=== PATIENT | male | born 1950 | race Caucasian/White ===

== ENCOUNTER → 2018-08-29 09:04 | Outpatient (POV) | payer MEDICARE, SELFPAY | PROVIDERS: Visit Provider Dermatology | DX: Z00.00 Encounter for general adult medical examination without abnormal findings (principal) ==

== ENCOUNTER → 2019-02-23 11:55 | Outpatient (CLI) | payer MEDICARE, SELFPAY ==
--- NOTE | 2019-02-23 12:01 | XR_ITS ---
XR chest 2V HISTORY: ITS.REASON: CHEST WALL PAIN ORDERING PHYSICIAN: LISA Cabrera PATIENT AGE: 68 years Technique: PA and lateral chest COMPARISON: 02/05/2016 PA and lateral chest FINDINGS: A sternotomy with previous CABG. Heart upper normal in size. Small calcified hilar nodes stable. Mediastinum otherwise unremarkable We again see areas of linear scarring and atelectasis toward lung bases Left lung base appears stable with linear scarring towards the left CP angle again noted. Left upper lung nicholson clear. Unremarkable Right lung base appears similar as well with minimal similar linear scarring at the right lower lobe. This is similar to previous chest films from 2016 this area. Fairly clear on today's lateral T-spine film as well and I believe stable. No pneumothorax no pleural effusion. Elevation right hemidiaphragm is again noted. right hemidiaphragm only down to the anterior fourth rib on right. The chest wall appears intact no apparent rib fractures on this routine CXR. T-spine appears stable since prior 2016 CXR IMPRESSION. Nothing definitely acute. CABG. Sternotomy. Mild linear scarring towards lower lobes bilaterally again noted. Stable Elevation right hemidiaphragm
--- NOTE | 2019-02-23 12:01 | XR_ITS ---
r XR elbow RT min 3V Ordering Physician: LISA Carbera Patient Age: 68 years: Male HISTORY: ITS.REASON: RT ELBOW PAIN injury fall 2 days ago TECHNIQUE: 3 views right elbow COMPARISON :None relevant FINDINGS No discrete acute fracture at the right elbow.. Anterior & posterior fat pad satisfactory. The patient does have prominent hypertrophic changes and degenerative changes at the elbow. Posterior there is a large 19 mm length thick spur from the posterior margin of the olecranon. It appears intact. Question possibly some mild swelling at the olecranon bursa just above this. Fragmented spur at base of the capitellum & lateral condyle condyle can reflect a old lateral epicondylitis . It has a corticated margin reflecting its old lung changes character. There is also spurring from the margin of the radial head At the medial aspect of joint is a small dens, comma shaped osseous fragment 4 mm length. It appears to be most likely an old feature related to degenerative process. The lateral view also shows hypertrophic changes of coronoid process and anterior margin of the joint. IMPRESSION.... 1. No good evidence of acute fracture at the elbow. No joint effusion 2. Hypertrophic changes are seen about the elbow and detailed in text Hypertrophic changes about the margins elbow joint, as well as insertion points. For example Prominent thick olecranon spur nearly 2 cm length. If pain persist consider follow-up
--- NOTE | 2019-02-23 12:01 | XR_ITS ---
XR thoracic spine 3V Ordering Physician: LISA Cabrera Patient Age: 68 years: Male HISTORY: ITS.REASON: THORACIC PAIN fall 2 days ago. Thoracic and pain TECHNIQUE: AP lateral and swimmer's view thoracic spine COMPARISON 02/05/2016 2 view chest :2 view chest film 02/23/2019 FINDINGS The thoracic vertebral bodies appear intact with no evident compression fracture or significant new findings. Prominent anterior marginal osteophytes are seen at the lower T-spine and less pronounced at the mid thoracic spine reflecting this patient's tendency to hypertrophic bone changes.. The AP view of the T-spine also appears to be a similar to 2016. CABG sternotomy noted. Diffusion procedure involving the lumbar spine is been previously discussed in begins at L1. IMPRESSION: No acute findings Thoracic spine appears stable no significant change since 2016 Generous anterior marginal osteophytes throughout the mid & lower T-spine again noted
--- NOTE | 2019-02-23 12:01 | XR_ITS ---
XR lumbar spine min 4V Ordering Physician: LISA Cabrera Patient Age: 68 years: Male HISTORY: ITS.REASON: LOW BACK PAINfall 2 days ago TECHNIQUE: Five-view lumbar spine series COMPARISON : 08/03/2013 flexion and extension lateral 2 view lumbar spine July 2009 AP lateral view lumbar spine series MRI lumbar spine July 2013 Findings A no acute fracture nor subluxation. No significant new findings versus 2008 extensive posterior fusion and laminectomy, again observed Bilateral Pedicle screws at L1, L2, L3, L4 and L5 with posterior metallic rods from L2 through L5. A laminectomy extending from at least L2- through L4/5. These features appear stable and I see no acute fracture nor new/ significant subluxation... Again we see the slight 4 to 5 mm retrolisthesis of L1 on L2 but this is unchanged since 2012 . Sacralization L5 the left more so than right again noted Prominent Anterior marginal osteophytes most notable at the lower thoracic spine and thoracolumbar junction IMPRESSION: ...... No acute fracture nor subluxation lumbar spine. Extensive posterior fusion and laminectomy again observed with no significant appearing changes since 2008. Slight retrolisthesis L1 on L2 appears stable since 2008.
== END ==
PROVIDERS: PCP Physician Assistant; Visit Provider Physician Assistant
DX: R07.89 Other chest pain (principal); M54.6 Pain in thoracic spine; M54.5 Low back pain; M25.521 Pain in right elbow
CPT/HCPCS: 71046; 72072; 72110; 73080

== ENCOUNTER → 2019-07-05 08:55 | Outpatient (CLI) | payer MEDICARE, SELFPAY ==
[2019-07-05 12:07] LABS: Alanine Aminotransferase 26 U/L (12-78); Albumin Level 3.8 gm/dL (3.4-5.0); Albumin/Globulin Ratio 1.3 (1.1-1.8); Alkaline Phosphatase 46 U/L (46-116); Anion Gap 16.3 mEq/L (5-15); Aspartate Amino Transferase 14 U/L (15-37); Bilirubin,Total 0.8 mg/dL (0.2-1.0); Blood Urea Nitrogen 14 mg/dL (7-18); Calcium 9.3 mg/dL (8.5-10.1); Carbon Dioxide 25 mmol/L (21.0-32.0); Chloride 103 mmol/L (98-107); Chol/HDL Ratio 3.7 (1-3.5); Cholesterol 137 mg/dL (140-200); Creatinine,Serum 0.77 mg/dL (0.70-1.30); Estimated Glomerular Filt Rate 100 ml/min (>60); GFR (African American) 121 ML/MIN (>60); Globulin 2.9 gm/dl (1.3-3.2); Glucose 123 mg/dL (74-106); HDL Cholesterol 37 mg/dL (27-67); LDL Cholesterol 54 mg/dL (0-130); Potassium 4.3 mmoL/L (3.5-5.1); Sodium 140 mmol/L (136-145); Total Protein,Serum 6.7 gm/dL (6.4-8.2); Triglycerides 232 mg/dL (30-200); VLDL Cholesterol 46 mg/dL (0-40)
[2019-07-05 14:29] LABS: Hemoglobin A1C 6.7 % (0.0-7.0)
== END ==
PROVIDERS: Visit Provider Family Medicine
DX: E11.9 Type 2 diabetes mellitus without complications (principal); E78.5 Hyperlipidemia, unspecified
CPT/HCPCS: 36415; 80053; 80061; 83036

== ENCOUNTER → 2019-08-22 09:59 | Outpatient (CLI) | payer MEDICARE, SELFPAY ==
--- NOTE | 2019-08-22 10:09 | MR_ITS ---
PROCEDURE: MR CERVICAL SPINE WO CON CLINICAL INDICATION: PARESTHESIA AND PAIN LEFT AND RIGHT EXTREMITY Neck pain, upper extremity pain and paresthesias with numbness and tingling down left, headache, grinding and neck COMPARISON: No exams were available for comparison TECHNIQUE: Standard multiplanar multiecho sequences are performed without contrast. 3-D MIP and myelographic images are also rendered and reviewed FINDINGS: There is normal alignment. The cranial cervical junction has an unremarkable appearance. C2-C3: Small annular fissure is present in the posterior aspect of the disc without significant bulge or protrusion. There narrowing of the canal at 10 mm. C3-C4: Bulging disc with a small central disc protrusion with minimal flattening of the cord anteriorly with canal stenosis at 9 mm. C4-C5: Bulging disc with small broad based central disc protrusion very slightly eccentric toward the left with canal stenosis at 9 mm and minimal flattening of the cord anteriorly with mild left lateral recess and foraminal narrowing. There is some minimal inferior extrusion of the disc at this level in the left paracentral region. C5-C6: Bulging disc with a small broad-based central disc protrusion with canal stenosis at 8 mm with mild impingement upon the anterior aspect of the cord with cord flattening. There is mild bilateral foraminal narrowing from uncovertebral hypertrophy. C6-C7: Degenerate disc disease with bulging disc and small broad-based central disc protrusion slightly eccentric to the left causing mild flattening upon the anterior left aspect of the cord with narrowing of the canal at 9.5 mm. Mild left-sided foraminal narrowing. C7-T1: Unremarkable. T1-T2: Degenerative disc disease. IMPRESSION: 1. C2-C3: Small annular fissure is present in the posterior aspect of the disc without significant bulge or protrusion. There narrowing of the canal at 10 mm. 2. C3-C4: Bulging disc with a small central disc protrusion with minimal flattening of the cord anteriorly with canal stenosis at 9 mm. 3. C4-C5: Bulging disc with small broad based central disc protrusion very slightly eccentric toward the left with canal stenosis at 9 mm and minimal flattening of the cord anteriorly with mild left lateral recess and foraminal narrowing. There is some minimal inferior extrusion of the disc at this level in the left paracentral region. 4. C5-C6: Bulging disc with a small broad-based central disc protrusion with canal stenosis at 8 mm with mild impingement upon the anterior aspect of the cord with cord flattening. There is mild bilateral foraminal narrowing from uncovertebral hypertrophy. 5. C6-C7: Degenerate disc disease with bulging disc and small broad-based central disc protrusion slightly eccentric to the left causing mild flattening upon the anterior left aspect of the cord with narrowing of the canal at 9.5 mm. Mild left-sided foraminal narrowing Dictated by: Giuseppe Galdamez MD 08/23/2019 12:11 Electronically signed by Giuseppe Galdamez MD in [facility] 08/23/2019 12:11
== END ==
PROVIDERS: PCP Family Medicine; Visit Provider Nurse Practitioner Family
DX: M79.601 Pain in right arm (principal); M54.2 Cervicalgia
CPT/HCPCS: 72141; 76376

== ENCOUNTER → 2019-09-04 07:53 | Outpatient (POV) | payer MEDICARE, SELFPAY | PROVIDERS: Visit Provider Dermatology | DX: Z00.00 Encounter for general adult medical examination without abnormal findings (principal) ==

== ENCOUNTER 2019-11-09 08:00 | Outpatient (RCR) | payer MEDICARE, SELFPAY | END 2019-11-09 08:05 | disposition home or self-care (01) | LOC: PT 08:00 | PROVIDERS: Visit Provider Neurological Surgery | DX: M54.2 Cervicalgia (principal) | CPT/HCPCS: 20560; 97010; 97012; 97014; 97033; 97035; 97110; 97140; 97163; G0283 ==

== ENCOUNTER → 2019-11-13 15:19 | Outpatient (CLI) | payer MEDICARE, SELFPAY ==
--- NOTE | 2019-11-13 15:35 | ECG_ITS ---
APPROVED REPORT Exam: Resting ECG HR:79 bpm ECG Measurements Heart Rate 79 AXES OR 180 P 35 QRSd 110 QRS -45 QT 402 T 84 QTc 460 <Conclusion> Normal sinus rhythm Left atrial abnormality, poor R-wave progression,left anterior fascicular block Abnormal ECG Electronically signed by : German De Jesus, 11/13/2019 20:06:14
== END ==
PROVIDERS: PCP Family Medicine; Visit Provider Nurse Practitioner Family
DX: Z01.810 Encounter for preprocedural cardiovascular examination (principal)
CPT/HCPCS: 93005

== ENCOUNTER → 2019-11-14 08:21 | Outpatient (CLI) | payer MEDICARE, SELFPAY ==
[2019-11-14 09:01] LABS: Basophils % 0.7 % (0.1-2.0); Eosinophils # 0.1 K/mm3 (0.0-0.4); Hematocrit 53.3 % (42.0-52.0); Hemoglobin 17.3 g/dL (14.1-18.0); Lymphocytes # 1.4 K/mm3 (0.7-4.5); Lymphocytes % 29.6 % (10-50); Mean Corpuscular HGB Conc 32.4 g/dL (31.8-35.4); Mean Corpuscular Hemoglobin 31.1 pg (27.0-31.2); Mean Corpuscular Volume 95.8 fl (80-94); Mean Platelet Volume 7.5 fl (7.4-10.4); Monocytes # 0.5 K/mm3 (0.1-1.0); Neutrophils # 2.7 K/mm3 (1.8-7.8); Neutrophils % 57.7 % (37.0-80.0); Platelet Count 171 K/mm3 (142-424); Red Blood Count 5.57 M/mm3 (4.60-6.20); White Blood Count 4.6 K/mm3 (4.8-10.8)
[2019-11-14 09:34] LABS: Hemoglobin A1C 6.6 % (0.0-7.0)
[2019-11-14 09:49] LABS: Alanine Aminotransferase 27 U/L (21-72); Albumin Level 3.7 g/dL (3.4-5.0); Albumin/Globulin Ratio 1.4 (1.1-1.8); Alkaline Phosphatase 47 U/L (46-116); Anion Gap 12.2 mEq/L (5-15); Aspartate Amino Transferase 15 U/L (15-37); Bilirubin,Total 0.6 mg/dL (0.2-1.0); Blood Urea Nitrogen 16 mg/dL (7-18); Calcium 9.3 mg/dL (8.5-10.1); Carbon Dioxide 30 mmol/L (21.0-32.0); Chloride 109 mmol/L (98-107); Creatinine,Serum 0.93 mg/dL (0.70-1.30); Estimated Glomerular Filt Rate 80 ml/min (>60); GFR (African American) 97 ML/MIN (>60); Globulin 2.7 gm/dl (1.3-3.2); Glucose 179 mg/dL (74-106); Potassium 4.2 mmoL/L (3.5-5.1); Sodium 147 mmol/L (137-145); Total Protein,Serum 6.4 g/dL (6.4-8.2)
== END ==
PROVIDERS: Visit Provider Nurse Practitioner Family
DX: Z01.818 Encounter for other preprocedural examination (principal); R73.9 Hyperglycemia, unspecified
CPT/HCPCS: 36415; 80053; 83036; 85025

== ENCOUNTER 2019-12-26 09:00 | Outpatient (RCR) | payer MEDICARE, SELFPAY | END 2019-12-26 09:05 | disposition home or self-care (01) | LOC: PT 09:00 | PROVIDERS: PCP Family Medicine | DX: M50.022 Cervical disc disorder at C5-C6 level with myelopathy (principal) | CPT/HCPCS: 97010; 97014; 97110; 97140; 97163; 97760; G0283 ==

== ENCOUNTER → 2020-03-07 08:28 | Outpatient (CLI) | payer MEDICARE, SELFPAY ==
--- NOTE | 2020-03-07 08:31 | US_ITS ---
PROCEDURE: US ABD. AORTA SCREENING CLINICAL INDICATION: AAA , Former smoker COMPARISON: No exams were available for comparison FINDINGS: The aorta is visualized from the level of the xiphoid sternum to the bifurcation. The aorta is normal in caliber throughout showing mild diffuse arthrosclerotic plaquing. The origins of the common iliac arteries are normal in caliber. IMPRESSION: Negative for aortic aneurysm Dictated by: Dr. Jonathan Mathews MD 03/07/2020 11:[address] Jonathan Mathews MD in [facility] 03/07/2020 11:50
== END ==
PROVIDERS: PCP Family Medicine; Visit Provider Nurse Practitioner Family
DX: Z13.6 Encounter for screening for cardiovascular disorders (principal)
CPT/HCPCS: 76705

== ENCOUNTER 2020-03-29 13:05 | Emergency (ER) | payer MEDICARE, SELFPAY ==
[2020-03-29 13:05] VITALS: BP 130/80; PULSE 76; RESP 18; TEMP 36.8; O2SAT 95
[2020-03-29 13:06] VITALS: BMI 31.1
--- NOTE | 2020-03-29 13:06 | ECG_ITS ---
APPROVED REPORT Exam: Resting ECG HR:74 bpm ECG Measurements Heart Rate 74 AXES OK 176 P 37 QRSd 92 QRS -45 QT 390 T 78 QTc 432 <Conclusion> Normal sinus rhythm Possible Left atrial enlargement Low voltage QRS Left anterior fascicular block Cannot rule out Old Inferior infarct (masked by fascicular block?) Old Lateral MT Abnormal ECG Electronically signed by : Maninder Rubio, 03/30/2020 19:32:20
--- NOTE | 2020-03-29 13:07 | PC.NURSE ---
trauma alert cancelled
--- NOTE | 2020-03-29 13:18 | CT_ITS ---
PROCEDURE: CT CHEST W CON Patient Age:69Y CLINICAL HISTORY: trauma alert multiple injuries pulled off tractor . Pain at left shoulder left upper ribs. left chest pain Mid back and lower back pain COMPARISON: No exams were available for comparison TECHNIQUE: IV contrast: 100 cc Optiray 350 bolus contrast administered No oral contrast utilized Helical axial images obtained with sagittal and coronal reformats. All CT scans at the facility use one or more dose reduction, viz: automated exposure control, ma/kV adjustment per patient size (including targeted exams where dose is matched to indication, i.e. head), or iterative reconstruction technique. FINDINGS: . Thyroid: Beginning superiorly at the thyroid there is a 2.5 cm AP times 2.1 cm height partially enhancing mass lower pole left lobe thyroid. Recommend thyroid ultrasound to further evaluate . Smaller 10 mm x 5 mm probable cyst seen towards the upper left lobe. . Left lobe thyroid enlarged compared to the right . Mediastinum and liam appear satisfactory. No significant adenopathy. No masses. Only modest size calcified mediastinal nodes of old granulomatous disease noted of most notable at base of right liam Aorta and great vessels appear satisfactory. Thoracic aorta intact with no aneurysm or dissection. Pulmonary artery appears satisfactory. No pulmonary emboli Heart. Borderline/mild cardiomegaly. left atrial appendage noted. CABG. Diffuse coronary artery calcifications sternotomy. No pericardial effusion. No acute findings by CT. A generous caliber IVC likely reflecting its capacitance Lungs: No active disease of significance Mild/moderate atelectasis adjacent to the prominent anterior marginal osteophytes of the spine. Otherwise only very minimal dependent atelectasis and scarring along the posterior aspect of the lower lobes.. Linear area of scarring and atelectasis most notable just above left hemidiaphragm and left posterior sulcus region. Unlikely any active infiltrate here. No pneumothorax. No pleural effusion. No acute pulmonary findings. . Bones but ribs but ribs appear intact no fractures identified. The multi level marginal osteophytes throughout the T-spine are again noted. Upper abdomen. . Gallstones noted at the upper abdomen but this will be discussed on the CT abdomen report IMPRESSION: No acute findings chest. No rib fractures identified Aorta and great vessels appear intact with no aneurysm nor dissection.. No pulmonary embolism No active pulmonary disease. No pneumothorax or effusion . Only minimal atelectasis and scarring most evident towards the left posterior sulcus/left lung base, . Also scarring adjacent to the prominent marginal osteophytes from thoracic spine Partially enhancing mass lower left lobe thyroid measures 2.5 cm. But recommend thyroid ultrasound a Borderline cardiomegaly Incidental gallstones Dictated by: Dilshad Ochoa MD 03/29/2020 15:09 Electronically signed by Dilshad Ochoa MD in [facility] 03/29/2020 15:09
--- NOTE | 2020-03-29 13:18 | CT_ITS ---
PROCEDURE: CT CERVICAL SPINE WO CON Patient Age:69Y CLINICAL INDICATION: trauma alert pulled off tractor. Multiple injuries pain whole left side of body . Head and neck injury. Neck pain. Head pain. Left chest left rib and scapula pain. Pelvic pain. COMPARISON: MR CERVICAL SPINE WO CON from 08/22/2019 TECHNIQUE: No IV contrast for this study helicalAxial images obtained through the cervical spine with thickened axial as well as sagittal and coronal reformats. All CT scans at the facility use one or more dose reduction, viz: automated exposure control, ma/kV adjustment per patient size (including targeted exams where dose is matched to indication, i.e. head), or iterative reconstruction technique. FINDINGS: Cervical spine intact with no fracture nor subluxation. Normal alignmentprevertebral soft tissues appear normal. . Posterior elements with satisfactory alignment as well. Minimal degenerative facet changes throughout C-spine . C5/6 anterior discectomy and fusion since the August 2019 MRI C-spine. Disc spacer device in place C5/6 C1-C2 relationships appear normal. Other minor observations Disc space well maintained at C2/3 C3/4 C4/5. Only suggestive mild central disc bulge at C4/5 and to less degree C3/4 Developing calcification of posterior ligamentous structures/ligamentum flavum at C4/5 and to less degree C5/6 incidentally noted. C5/6 a discectomy/anterior fusion again noted Slight narrowing at C6/7 and C7/T1 disc space observed and appear similar if not if not very slightly more pronounced than on 2019 MRI. Mild calcification at the carotid bifurcations bilaterally Apices of lungs are clear with no acute findings. Thyroid: 2.4 cm AP x 2.2 cm height low-density area probable cyst at the lower pole left lobe thyroid is again noted. It basically stable to the MRI from August 2019. However may benefit from follow-up ultrasound to correlate and confirm benign cystic nature as well as to evaluate for other slight inhomogeneous areas at the thyroid IMPRESSION: No acute fracture or subluxation cervical spine . No acute traumatic findings. Normal alignment. Previous anterior discectomy and fusion at C5/6.-satisfactory alignment here. Incidental note 2.5 cm basically stable probable cyst, left lobe of thyroid.. Suggest thyroid ultrasound to further evaluate. Dictated by: Dilshad Ochoa MD 03/29/2020 14:09 Electronically signed by Dilshad Ochoa MD in [facility] 03/29/2020 14:09
--- NOTE | 2020-03-29 13:18 | CT_ITS ---
PROCEDURE: CT HEAD/BRAIN WO CON Patient Age:69Y CLINICAL INDICATION: trauma alert. Pulled off tractor pain whole side of left body COMPARISON: MR CERVICAL SPINE WO CON from 08/22/2019 TECHNIQUE: Standard axial images were obtained. All CT scans at the facility use one or more dose reduction, viz: automated exposure control, ma/kV adjustment per patient size (including targeted exams where dose is matched to indication, i.e. head), or iterative reconstruction technique. FINDINGS: No acute intracranial findings. But there are scattered low-density areas in the deep white matter bilaterally most evident at the left cerebral hemisphere deep white matter but these reflect most likely chronic small vessel deep white-matter ischemic gliotic changes; due to history of underlying vascular disease. Moderate calcified carotid siphons bilaterally, left more so than right. Also consider follow-up with carotid duplex Doppler study. With the deep white matter changes slightly more evident on the left there is very slightly more pronounced cerebral atrophy left cerebral hemisphere, and with this the left lateral ventricle is slightly larger than right. These appear to be all longstanding chronic feature. In regards to current trauma no subdural collections. No hemorrhage. The ventricles and basal cisterns appear clear.. Posterior fossa is unremarkable The skull is intact but no fractures base of skull intact. The mastoid air cells are well developed and clear. The middle ear is clear. IAC's symmetric.. The visualized portions of the paranasal sinuses are clear.. Limited views orbits unremarkable .. 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 Skull intact Dictated by: Dilshad Ochoa MD 03/29/2020 13:45 Electronically signed by Dilshad Ochoa MD in [facility] 03/29/2020 13:45
--- NOTE | 2020-03-29 13:21 | XR_ITS ---
PROCEDURE: XR KNEE LT 3V Patient Age:69Y CLINICAL INDICATION: injury pulled off tractor with multiple injuries left knee pain COMPARISON: No exams were available for comparison FINDINGS: LEFT KNEE: THREE VIEW: AP oblique nonweightbearing with cross-table lateral.. Arthritic changes left knee. Joint space narrowing most evident at the lateral compartment on this nonweightbearing study.. Developing tricompartmental marginal osteophytes. There is a small joint effusion at suprapatellar bursa. Also on the lateral view there is a osseous prominence anteriorly at the tibia but I suspect this is most likely a marginal osteophyte is of expect to see a larger joint effusion. However there is point tenderness in this area than that may a. Normal mineralization. Flabella posteriorly noted. Vascular calcifications popliteal and into the trifurcation noted. Clips from previous vein harvesting for CABG noted medial medial aspect of lower leg . IMPRESSION: Degenerative arthritic changes left knee with joint space narrowing most pronounced at the lateral compartment.. Developing tricompartmental marginal osteophytes Small joint effusion at suprapatellar bursa evident Also on today's lateral film-there is what I suspect is a prominent marginal osteophyte off the anterior margin of tibia.. Additionally question if this could be a fracture but I would expect to see a larger joint effusion and more pronounced regional soft tissue swelling if this was an acute fracture. (However the patient has significant pain along posterior margin of tibia consider CT to further evaluate.) This areas marked on the cross-table lateral image Dictated by: Dilshad Ochoa MD 03/29/2020 15:40 Electronically signed by Dilshad Ochoa MD in [facility] 03/29/2020 15:40
--- NOTE | 2020-03-29 13:22 | CT_ITS ---
PROCEDURE: CT HIP LT WO CON Patient Age:69Y CLINICAL HISTORY: trauma pulled off tractor with multiple injuries. Mainly pain throughout left body. Both left and right hip pain COMPARISON: from 02/23/2019 CT HIP RT WO CON from 03/29/2020 CT ABDOMEN PELVIS W CON from 03/29/2020 TECHNIQUE: No IV contrast used for the CT hip study Helical axial images obtained with sagittal and coronal reformats. All CT scans at the facility use one or more dose reduction, viz: automated exposure control, ma/kV adjustment per patient size (including targeted exams where dose is matched to indication, i.e. head), or iterative reconstruction technique. FINDINGS: The left hip appears intact no fracture evident. The left femoral head and neck intact. Left hip joint space well maintained. Trace roughening along superior margin acetabular rim bilaterally appear symmetric and a not significant. Subtrochanteric regions intact but again. Mild wispy edema and subcutaneous tissues overlying the greater trochanter on left as well as right.. The there is sacralization at L5 bilaterally which is most extensive on the left. Sclerotic changes anterior inferior left SI joint most likely degenerative in nature. No pelvic adenopathy. The 2 cm focal area of dilatation distal left common iliac artery is again noted leading to its branch point between the internal and external iliac artery. Prostate is enlarged measuring 5.6 cm transverse maximally IMPRESSION: Left hip intact-no fracture evident. Left hip joint space well maintained Other incidental observations: . Prostatic enlargement 5.6 cm transverse . Focal dilatation left common iliac artery up to 2 cm diameter Dictated by: Dilshad Ochoa MD 03/29/2020 15:53 Electronically signed by Dilshad Ochoa MD in [facility] 03/29/2020 15:53
--- NOTE | 2020-03-29 13:22 | CT_ITS ---
PROCEDURE: CT THORACIC SPINE WO CON Patient Age:69Y CLINICAL HISTORY: trauma pulled off tractor. Multiple injuries. Left chest left rib left scapula pain. Thoracic pain. COMPARISON: No exams were available for comparison TECHNIQUE: no IV contrast used for the T-spine CT study Helical axial images obtained with sagittal and coronal reformats. All CT scans at the facility use one or more dose reduction, viz: automated exposure control, ma/kV adjustment per patient size (including targeted exams where dose is matched to indication, i.e. head), or iterative reconstruction technique. FINDINGS: No acute fracture nor subluxation in the cervical spine. Mild diffuse demineralization. Generous anterior marginal osteophytes most evident at the mid and lower T-spine and mainly extending just to the right of midline. Mild facet arthropathy most notable towards the lower T-spine and most evident at T9-10 bilateral. T8-9 with minor central spurring. Fifty T2/T3 with some mild posterior hypertrophic ridging to the right and mild right foraminal encroachment, axial slice 11, sagittal 35. Spinous processes intact Of there is disc space narrowing anteriorly at the T12/L1 disc space and L1/L2. Posterior fusion at L1/L2 with mild accentuated kyphosis through this T12-L2 segment but no compression fractures. Appears to been discectomy, with disc spacer device and laminectomy noted at L1/L2. Remote old feature. Lung nicholson: Pulmonary scarring adjacent to the marginal osteophytes. Also minimal scarring and atelectasis at the dependent lung nicholson most notable towards the left posterior lung base IMPRESSION: No acute findings in the thoracic spine. Thoracic vertebral bodies intact.. No acute fracture nor subluxation. Multilevel degenerative changes T-spine.: As detailed in text .Particularly note degenerative disc narrowing at T12/L1 and L1/L2 with discectomy laminectomy L1/L2 .Mild facet arthropathy of mid and lower T-spine. .Scant central spurring T8/9 into the right at T2/T3 Posterior fusion with laminectomy and likely discectomy also noted L1/L2 noted on this thoracic study Dictated by: Dilshad Ochoa MD 03/29/2020 16:06 Electronically signed by Dilshad Ochoa MD in [facility] 03/29/2020 16:06
--- NOTE | 2020-03-29 13:22 | CT_ITS ---
PROCEDURE: CT LUMBAR SPINE WO CON Patient Age:69Y CLINICAL HISTORY: trauma fell off tractor with multiple injuries. Back pain lumbar pain. Pelvic pain. 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 All CT scans at the facility use one or more dose reduction, viz: automated exposure control, ma/kV adjustment per patient size (including targeted exams where dose is matched to indication, i.e. head), or iterative reconstruction technique. FINDINGS: Extensive posterior fusion lumbar region again seen and appears similar and stable to the previous lumbar MRI from 2013. Bilateral pedicle screws at L1-L2 L3-L4 L5 with associated posterior fixation rods but metal components yield streak artifact . Facet hypertrophy each level L-spine. Most pronounced lower L-spine T 12/L1 disc space narrowing but most evident anterior at this level with overall slight progression disc space narrowing since 2013 MR L1/L2. Discectomy. Laminectomy fusion. Posterior fusion. Upward directed pedicles screws appear stable and intact L2/L3: Stable mild disc space narrowing. Probable laminectomy to the right L2/3. L3/4: Mild disc space narrowing with mild spondylosis stable. status post laminectomy at midline L4/5. Disc space narrowing stable. Laminectomy and pedicle screw stable L5/S1 prominent facet hypertrophy. Partial sacralization L5 vertebra most evident to the left but the slight fragmentation here I believe is due to the longstanding sacralization feature Sclerotic changes about SI joints of most likely reflect degenerative arthritic changes . Sacrum intact with fracture nor insufficiency fracture IMPRESSION: No acute fracture nor subluxation lumbar spine. Extensive posterior fusion from L1 through L5 with associated laminectomy at each of the interval levels. . L1/L2 with discectomy, laminectomy, disc spacer device and posterior fusion. . Partial sacralization of L5 bilaterally most evident to the the left. Dictated by: Dilshad Ochoa MD 03/29/2020 16:01 Electronically signed by Dilshad Ochoa MD in [place] 03/29/2020 16:01
--- NOTE | 2020-03-29 13:22 | CT_ITS ---
Procedure: CT ABDOMEN PELVIS W CON Patient Age:69Y CLINICAL INDICATION: trauma COMPARISON: CT LUMBAR SPINE WO CON from 03/29/2020 CT THORACIC SPINE WO CON from 03/29/2020 TECHNIQUE: IV contrast. 100 cc Optiray 350 utilized. IV bolus contrast administered at chest-with scanning continuing through the abdomen/pelvis following IV bolus contrast administration Axial images obtained with sagittal and coronal reformats. All CT scans at the facility use one or more dose reduction, viz: automated exposure control, ma/kV adjustment per patient size (including targeted exams where dose is matched to indication, i.e. head), or iterative reconstruction technique. FINDINGS: Lower thorax: No acute finding mild dependent atelectasis most evident at left posterior sulcus but minimal scarring and atelectasis adjacent to the marginal osteophytes lower T-spine. Borderline-mild cardiomegaly with CABG and coronary artery calcification. ABDOMEN: Liver: . intact with no acute findings. Suggestion of subtle diffuse fatty change Gallbladder: Cholelithiasis small gallstones towards neck of gallbladder. Largest measuring to 6 mm size. Gallbladder upper normal sized but common duct normal Pancreas: . Unremarkable: No masses or inflammatory changes Spleen: Normal size. Intact. . Calcified splenic artery upper normal caliber towards hilum of spleen but Adrenals: unremarkable tract - Kidneys/ureters: No acute findings Kidneys normal size with normal enhancement. A few small calcifications seen towards more medial aspect of the kidneys bilaterally, appear to be renal-vascular calcifications. No definitive renal calculi seen. No urinary tract obstruction but minimal stranding about both kidneys likely reflecting chronic changes PELVIS:Prostate enlarged measuring 5.7 cm transverse it does indent base the bladder slightly to the Bladder: Nondistended. No obvious stones or masses. Appendix: Unremarkable. No distention or periappendiceal phlegmonous change. GI tract--no acute findings-no bowel dilatation or obstruction. The Appendix well visualized and normal. Stomach and small bowel bowel: Satisfactory. Nondistended. No obvious mass or thickening. Upper normal fluid in food at distal small bowel Peritoneum: No abnormal fluid collections. No obvious inflammatory changes. No free air. Lymph nodes: No enlarged lymph nodes apparent. Vascular:. Iliac vessels a slightly dilated bilaterally. Left common iliac artery focally dilated up to 2 cm appearance. Of warrants follow-up to exclude developing aneurysm (defined 2.5 cm diameter). Generous atheromatous plaque generous atheromatous plaque fills this saccular area of dilatation. Aorta atherosclerotic calcification. No aortic aneurysm. No retroperitoneal hemorrhage. Minimal atheromatous plaque circumferentially at lower abdominal aorta. . No retroperitoneal hemorrhage evident. Bones: Lower ribs unremarkable. Attention to left lower ribs But the extensive posterior fusion lumbar spine L1-L5 described on CT lumbar report. Of there is partial sacralization of L5 most evident to the left with fragmentation here most likely longstanding feature Osseous pelvis but no additional findings. The right and left hip appear symmetric no free fluid the pelvis but IMPRESSION: No acute traumatic findings involving the abdomen or pelvis. . Visceral organs are intact. Specifically the spleen and liver intact . Mild stranding about the kidneys most likely reflects mild chronic changes. No acute fractures. Prominent degenerative changes osseous structures. Old posterior fusion L1-L5 also noted Cholelithiasis. Focal saccular dilatation
[2020-03-29 13:55] LABS: Chloride 105 mmol/L (98-107); Sodium 138 mmol/L (136-145)
[2020-03-29 13:56] LABS: Potassium 4.5 mmoL/L (3.5-5.1)
[2020-03-29 13:58] LABS: Alanine Aminotransferase 24 U/L (12-78); Alkaline Phosphatase 43 U/L (38-126); Aspartate Amino Transferase 30 U/L (17-59); Bilirubin,Total 0.8 mg/dl (0.2-1.3); Blood Urea Nitrogen 15 mg/dl (9-20); Creatinine Clearance Estimated 89 mL/min (50-200); Estimated Glomerular Filt Rate 83 ml/min (>60); GFR (African American) 101 ML/MIN (>60)
[2020-03-29 13:59] LABS: Albumin Level 4.4 g/dl (3.5-5.0); Albumin/Globulin Ratio 1.7 (1.1-1.8); Anion Gap 11.5 mEq/L (5-15); Calcium 9.9 mg/dl (8.4-10.2); Carbon Dioxide 26 mmol/L (22.0-30.0); Globulin 2.6 g/dL (1.3-3.2); Glucose 160 mg/dl (74-100)
[2020-03-29 14:04] LABS: Basophils # 0.1 K/mm3 (0-0.2); Basophils % 1.2 % (0.1-2.0); Eosinophils # 0.1 K/mm3 (0.0-0.4); Eosinophils % 1.4 % (0.1-12.0); Hematocrit 50.9 % (42.0-52.0); Hemoglobin 17.2 g/dL (14.1-18.0); Lymphocytes # 1.5 K/mm3 (0.7-4.5); Lymphocytes % 25.9 % (10-50); Mean Corpuscular HGB Conc 33.9 g/dL (31.8-35.4); Mean Corpuscular Hemoglobin 32.7 pg (27.0-31.2); Mean Corpuscular Volume 96.5 fl (80-94); Mean Platelet Volume 7.2 fl (7.4-10.4); Monocytes # 0.6 K/mm3 (0.1-1.0); Monocytes % 9.3 % (1.7-9.3); Neutrophils # 3.7 K/mm3 (1.8-7.8); Neutrophils % 62.3 % (37.0-80.0); Platelet Count 158 K/mm3 (142-424); Red Blood Count 5.28 M/mm3 (4.60-6.20)
--- NOTE | 2020-03-29 14:05 | CT_ITS ---
PROCEDURE: CT HIP RT WO CON Patient Age:69Y CLINICAL HISTORY: injury pulled off tractor. Multiple injuries. Right hip pain pain Left-sided pain otherwise COMPARISON: CT ABDOMEN PELVIS W CON from 03/29/2020 TECHNIQUE: No IV contrast used for the dedicated right hip CT study Helical axial images obtained with sagittal and coronal reformats. All CT scans at the facility use one or more dose reduction, viz: automated exposure control, ma/kV adjustment per patient size (including targeted exams where dose is matched to indication, i.e. head), or iterative reconstruction technique. FINDINGS: Right hip intact with no fracture nor subluxation. Right hip joint space well maintained. Femoral head normal density and contour. The right femoral head and neck intact. Trochanteric and subtrochanteric region of right femur intact. Subtrochanteric in proximal shaft intact. The visualized right hemipelvis intact. Sclerotic changes anterior right SI joint most likely reflect degenerative arthritic changes here but There is some minimal edema and SQ and soft tissues overlying the greater trochanter.. Greater trochanter and trochanteric region intact Upper normal joint fluid at right hip Space well maintained Atherosclerotic calcification at the common femoral and superficial femoral arteries but IMPRESSION: Right hip intact. No fracture nor dislocation. Hip joint space well maintained. Mild SQ and edema in the soft tissues laterally, overlying the trochanteric region and right hip,-reflect recent trauma Dictated by: Dilshad Ochoa MD 03/29/2020 14:50 Electronically signed by Dilshad Ochoa MD in [place] 03/29/2020 14:50
--- NOTE | 2020-03-29 14:08 | PC.NURSE ---
pt still in ct
[2020-03-29 14:56] VITALS: BP 114/74; PULSE 65; RESP 16; O2SAT 95
[2020-03-29 15:02] VITALS: BP 104/66; PULSE 67; RESP 16; O2SAT 95
[2020-03-29 15:41] VITALS: BP 102/60; PULSE 68; RESP 20; O2SAT 96
[2020-03-29 16:02] LABS: Troponin I < 0.01 ng/ml (0.00-0.034)
[2020-03-29 16:05] VITALS: BP 96/57; PULSE 66; RESP 18; O2SAT 97
--- NOTE | 2020-03-29 16:29 | HMH.EDTRAUMA ---
ED Disposition Clinical Impression: Multiple contusions Disposition: Home, Self-Care Condition on Discharge: Good Referrals: Shabnam Cordova APRN [Primary Care Provider] - - Critical Care Critical Care Time: No Attestation: On 03/29/20, the high probability of a clinically significant, sudden or life threatening deterioration of the following system(s) required my full and direct attention, intervention and personal management. The time I documented below is in addition to time spent performing reported procedures but includes the following listed in this critical care notation. Medical Decision Making - Medical Records Medical records reviewed: Yes: I reviewed the patient's medical records. - Humberto Inquiry Pt receiving controlled substance: No Vital Signs: 03/29/20 13:05 03/29/20 14:56 03/29/20 15:02 Temperature 98.3 F Temperature Source Oral Pulse Rate [Right Radial] 76 65 67 Respiratory Rate 18 16 16 Blood Pressure [Right Arm] 130/80 114/74 104/66 L Blood Pressure Mean [Right Arm] 96 87 78 Blood Pressure Source [Right Arm] Manual Cuff/ Auscultation Automatic Cuff Automatic Cuff Blood Pressure Position [Right Arm] Sitting Sitting Supine 02 Sat by Pulse Oximetry 95 95 95 Oxygen Delivery Method Room Air Nasal Cannula Nasal Cannula Oxygen Flow Rate (LPM) 2 2 03/29/20 15:41 03/29/20 16:05 Temperature Temperature Source Pulse Rate [Right Radial] 68 66 Respiratory Rate 20 18 Blood Pressure [Right Arm] 102/60 L 96/57 L Blood Pressure Mean [Right Arm] 74 70 Blood Pressure Source [Right Arm] Automatic Cuff Blood Pressure Position [Right Arm] Sitting 02 Sat by Pulse Oximetry 96 97 Oxygen Delivery Method Nasal Cannula Nasal Cannula Oxygen Flow Rate (LPM) 2 - Lab Data Lab results reviewed: Yes: I reviewed the patient's lab results. Lab Results 03/29/20 13:10: Sodium 138, Potassium 4.5, Chloride 105, Carbon Dioxide 26, Anion Gap 11.5, BUN 15, Creatinine 0.90, Estimated Creat Clear 89, Estimated GFR 83, Est GFR ( Amer) 101, Glucose 160 H, Calcium 9.9, Total Bilirubin 0.8, AST 30, ALT 24, Alkaline Phosphatase 43, Total Protein 7.0, Albumin 4.4, Globulin 2.6, Albumin/Globulin Ratio 1.7 03/29/20 13:10: WBC 6.0, RBC 5.28, Hgb 17.2, Hct 50.9, MCV 96.5 H, MCH 32.7 H, MCHC 33.9, RDW 14.0, Plt Count 158, MPV 7.2 L, Neut % (Auto) 62.3, Lymph % (Auto) 25.9, [place] % (Auto) 9.3, Eos % (Auto) 1.4, Baso % (Auto) 1.2, Neut # (Auto) 3.7, Lymph # (Auto) 1.5, [place] # (Auto) 0.6, Eos # (Auto) 0.1, Baso # (Auto) 0.1 03/29/20 13:10: Troponin I < 0.01 Result diagrams: 03/29/20 13:10 03/29/20 13:10 Orders (Tests/Meds): ED MEDICATIONS Generic Name Dose Route Start Last Admin Trade Name Freq PRN Reason Stop Dose Admin Sodium Chloride 10 ml 03/29/20 13:21 Sodium Chloride 0.9% 10ml Vial IV 04/28/20 13:20 NEEDED PRN to Dilute Lorazepam inj Sodium Chloride 10 ml 03/29/20 14:12 03/29/20 14:14 Rad-Saline Flush 10ml Syringe IV 04/28/20 14:11 10 ml NEEDED PRN Administration Maintain IV Site Discontinued Medications Generic Name Dose Route Start Last Admin Trade Name Freq PRN Reason Stop Dose Admin Ioversol 100 ml 03/29/20 14:12 03/29/20 14:14 Rad-Optiray 350 150ml Vial IV 03/29/20 14:13 100 ml ONCE ONE Administration Ketorolac Tromethamine 30 mg 03/29/20 14:36 03/29/20 14:37 Toradol 30mg/Ml Vial IV 03/29/20 14:37 30 mg ONCE ONE Administration Lorazepam 1 mg 03/29/20 13:21 03/29/20 13:31 Ativan 2mg/Ml Vial IV 03/29/20 13:22 1 mg ONCE ONE Administration Morphine Sulfate 4 mg 03/29/20 13:21 03/29/20 13:31 Morphine 4mg/Ml Syringe IV 03/29/20 13:22 4 mg ONCE ONE Administration Ondansetron HCl 4 mg 03/29/20 13:21 03/29/20 13:31 Zofran 4mg/2ml Vial IV 03/29/20 13:22 4 mg ONCE ONE Administration ORDERS Category Date Time Status Troponin I Q3H Lab 03/29/20 18:45 Ordered Troponin I Q3H Lab 03/29/20
[2020-03-29 16:43] VITALS: BP 100/58; PULSE 70; RESP 16; TEMP 36.8; O2SAT 96
[2020-05-02 09:44] LABS: POC Glucose,Bedside 149 (70-110)
== END 2020-03-29 16:44 | disposition home or self-care (01) ==
PROVIDERS: Emergency Provider Family Medicine; PCP Nurse Practitioner Family
DX: S30.0XXA Contusion of lower back and pelvis, initial encounter (principal); S70.02XA Contusion of left hip, initial encounter; S30.1XXA Contusion of abdominal wall, initial encounter; S80.02XA Contusion of left knee, initial encounter; S00.03XA Contusion of scalp, initial encounter; S20.212A Contusion of left front wall of thorax, initial encounter; S20.211A Contusion of right front wall of thorax, initial encounter; S20.222A Contusion of left back wall of thorax, initial encounter; S20.221A Contusion of right back wall of thorax, initial encounter; V84.5XXA Driver of special agricultural vehicle injured in nontraffic accident, initial encounter; Y92.73 Farm field as the place of occurrence of the external cause
CPT/HCPCS: 70450; 71260; 72125; 72128; 72131; 73562; 73700; 74177; 80053; 82962; 84484; 85025; 93005; 96374; 96375; 99282; 99283; J2405; Q9967

== ENCOUNTER → 2021-10-06 14:39 | Outpatient (POV) | payer MEDICARE, SELFPAY | PROVIDERS: Visit Provider Dermatology | DX: Z00.00 Encounter for general adult medical examination without abnormal findings (principal) ==

== ENCOUNTER → 2022-02-04 09:01 | Outpatient (CLI) | payer MEDICARE, SELFPAY | PROVIDERS: PCP Family Medicine; Visit Provider Internal Medicine Interventional Cardiology | DX: Z01.812 Encounter for preprocedural laboratory examination (principal); Z11.52 Encounter for screening for COVID-19 | CPT/HCPCS: C9803; U0003; U0005 ==

== ENCOUNTER 2022-12-09 12:44 | Emergency (ER) | payer MEDICARE, SELFPAY ==
[2022-12-09 12:50] VITALS: BP 145/84; PULSE 87; RESP 18; TEMP 36.8; O2SAT 96; BMI 28.6
[2022-12-09 12:52] VITALS: BP 145/84; PULSE 87; RESP 18; O2SAT 96; BMI 29.4
[2022-12-09 12:53] VITALS: BMI 28.7
--- NOTE | 2022-12-09 12:54 | XR_ITS ---
FINAL REPORT CLINICAL HISTORY: FALL, lt knee pain COMPARISON: 07/29/2020 FINDINGS: LEFT KNEE: Three views of the left knee were obtained. There are moderate degenerative changes with no acute fracture or dislocation. Visualized joint spaces are normally aligned. There is no joint effusion. Moderate vascular calcifications are noted. IMPRESSION: No acute bony abnormality. Reviewed, Interpreted and Dictated by Saul Bobo III, MD Transcribed by Concetta Issa Authenticated and [facility]
--- NOTE | 2022-12-09 13:42 | EXP.UTC ---
Discharge Plan Disposition Patient Disposition: Home, Self-Care Condition: Good Referrals Follow up/Referrals: Ovidio Oneal MD [Primary Care Provider] - See instructions Johnathan Angel DO [Staff Physician] - See instructions Activity Restrictions/Add. Instructions Additional Instructions/Restrictions: Rest the extremity, apply ice for 15 minutes as tolerated three or four times per day, Wear the gerry wrap for compression, Elevate the extremity as tolerated while you are resting. Follow up with Dr. Angel (orthopedics) if you continue to have symptoms after resting it a couple of days. I put in a referral but you need to call his office and schedule an appointment. Follow up with your regular doctor. GO TO THE ER FOR ANY WORSENING SYMPTOMS Clinical Impressions Clinical Impression: Left knee pain, Left knee sprain Discharge ED Provider: Anjel Barros [facility] General Stated complaint: Fall@home 12/09 LT knee pain Mode of Arrival: Wheelchair Source of Information: Patient and Spouse Limitations: No Limitations Time Seen by Provider: 12/09/22 13:42 Description of Symptoms (Recalled from Triage Doc. by RN): c/o left knee pain, states his right foot went into a hole and his left leg bent back backward up to his back. States due to his previous surgery 61 years ago his leg/knee does not bend like that. 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 He has had left knee pain since it happened. He denies other injury. Related Data Allergies Allergy/AdvReac Type Severity Reaction Status Date / Time No Known Allergies Allergy Unverified 09/20/17 15:00 Worker's Comp Is this a Worker's Comp case?: No [facility] Disclaimer: The information contained in this section may have been updated after the patient was seen, as this information can be updated by other users. Social History Smoking Status: Never smoker alcohol intake: never current occupational status: retired Travel in the last 8 weeks: None ROS Obtained: Yes All systems reviewed & no additional complaints except as documented Constitutional Constitutional: Denies chills and Denies fever(s) Eyes Eyes: Denies eye discharge ENT Ears, Nose, Mouth, and Throat: Denies dizziness, Denies otalgia and Denies sore throat Cardiovascular Cardiovascular: Denies chest pain Respiratory Respiratory: Denies shortness of breath, Denies chest congestion, Denies cough, Denies stridor and Denies wheezing Gastrointestinal Gastrointestingal: Denies nausea or vomiting Musculoskeletal Musculoskeletal: Reports as per HPI Integumentary/Breasts Skin/Breast: Denies rash Neurologic Neurologic: Denies dizziness and Denies paresthesias Allergic/Immunologic Allergic/Immunologic: Denies wheezing Physical Exam General General appearance: alert and in no apparent distress Head Head exam: atraumatic, normocephalic and normal inspection Eye Eye exam: Present normal appearance, PERRL and EOMI ENT ENT exam: Present normal exam, normal oropharynx, mucous membranes moist, TM's normal bilaterally and normal external ear exam Neck Neck exam: Present normal inspection, full ROM and trachea midline; Absent meningismus or lymphadenopathy Chest Chest inspection: Present normal inspection and symmetric chest wall rise; Absent tenderness Respiratory Respiratory exam: Present normal lung sounds bilaterally; Absent respiratory distress Cardiovascular Cardiovascular exam: Present regular rate and normal rhythm; Absent JVD Abdominal Exam Abdominal exam: Present soft and normal bowel sounds; Absent distention, tenderness or guarding Extremities Exam Extremities exam: Present normal capillary refill; Absent calf tenderness Expanded Lower Extremity Exam Left: Knee exam: Present tenderness, swelling and knee extension intact; Absent full ROM, abrasion,
[2022-12-09 14:35] VITALS: BP 145/84; PULSE 87; RESP 18; TEMP 36.8; O2SAT 96
== END 2022-12-09 14:39 | disposition home or self-care (01) ==
PROVIDERS: Emergency Provider Nurse Practitioner Family; PCP Family Medicine
DX: S83.92XA Sprain of unspecified site of left knee, initial encounter (principal); W01.0XXA Fall on same level from slipping, tripping and stumbling without subsequent striking against object, initial encounter
CPT/HCPCS: 73562; 99212; 99213; G0463

== ENCOUNTER → 2022-12-24 07:17 | Outpatient (CLI) | payer MEDICARE, SELFPAY ==
--- NOTE | 2022-12-24 07:22 | CT_ITS ---
FINAL REPORT TECHNIQUE: Thin section axial CT images with coronal and sagittal reformats were performed. This study was performed with techniques to keep radiation doses as low as reasonably achievable (ALARA). Individualized dose reduction techniques using automated exposure control or adjustment of mA and/or kV according to the patient''s size were employed. CLINICAL HISTORY: LT KNEE PAIN FINDINGS: CT LEFT KNEE W/O CONTRAST There are no fractures. There is moderately advanced lateral compartment joint space narrowing. There is subchondral sclerosis in the lateral femoral condyle and lateral tibial plateau. There are hypertrophic changes at the medial and lateral joint margins. Osteophytes are seen at the patellofemoral joint. There are prominent osteophytes seen at the articulation between the proximal tibia and proximal fibula. There is mild chondrocalcinosis. There is an intra articular loose body posterior to the lateral femoral condyle measuring up to 2.3 cm and is well seen on sagittal images 39 of series 602. There are no masses or fluid collections. There are no soft tissue abnormalities. IMPRESSION: Moderately advanced osteoarthritis, particularly evident in the lateral compartment joint space. Reviewed, Interpreted and Dictated by Donovan Clark MD Transcribed by Nanci Singh Authenticated and [facility]
[2022-12-24 08:23] LABS: Alanine Aminotransferase 17 U/L (12-78); Albumin Level 4.3 g/dl (3.5-5.0); Alkaline Phosphatase 51 U/L (38-126); Anion Gap 10.6 mEq/L (5-15); Aspartate Amino Transferase 20 U/L (17-59); Bilirubin,Total 0.7 mg/dl (0.2-1.3); Blood Urea Nitrogen 14 mg/dl (9-20); Calcium 9.2 mg/dl (8.4-10.2); Carbon Dioxide 29 mmol/L (22.0-30.0); Chloride 104 mmol/L (98-107); Chol/HDL Ratio 2.2 (1-3.5); Cholesterol 83 mg/dl (140-200); Estimated Glomerular Filt Rate 82 ml/min (>60); GFR (African American) 100 ML/MIN (>60); Globulin 2.1 g/dL (1.3-3.2); Glucose 133 mg/dl (74-100); HDL Cholesterol 37 mg/dl (40-60); Potassium 4.6 mmoL/L (3.5-5.1); Sodium 139 mmol/L (136-145); Total Protein,Serum 6.4 g/dl (6.3-8.2); Triglycerides 195 mg/dl (30-150); VLDL Cholesterol 39 mg/dL (0-40)
[2022-12-24 08:37] LABS: Direct LDL Cholesterol < 30.00 mg/dL (100-129)
[2022-12-24 08:53] LABS: Prostate Specific Ag Screen 0.8 ng/ml (0.0-4.0)
[2022-12-24 09:30] LABS: Hemoglobin A1C 6.7 % (4.0-6.0)
== END ==
PROVIDERS: PCP Family Medicine; Visit Provider Nurse Practitioner Family
DX: E11.9 Type 2 diabetes mellitus without complications (principal); E78.5 Hyperlipidemia, unspecified; M25.562 Pain in left knee; Z12.5 Encounter for screening for malignant neoplasm of prostate
CPT/HCPCS: 36415; 73700; 80053; 80061; 83036; G0103

== ENCOUNTER → 2022-12-27 14:37 | Outpatient (CLI) | payer MEDICARE, SELFPAY ==
--- NOTE | 2022-12-27 | CA_ITS ---
FINAL REPORT CLINICAL HISTORY: Acut left lower leg injury. 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 FINDINGS: Normal phasic flow was noted in the visualized deep venous system. No intraluminal increased echogenicity is noted to suggest thrombus. There is normal compression and augmentation of the venous structures. No abnormal venous collaterals are seen. IMPRESSION: No evidence of deep venous thrombosis of the left lower extremity. Reviewed, Interpreted and Dictated by Tiffany Connolly MD Transcribed by Concetta Issa Authenticated and [facility]
== END ==
PROVIDERS: PCP Family Medicine; Visit Provider Nurse Practitioner Family
DX: M79.605 Pain in left leg (principal)
CPT/HCPCS: 93971

== ENCOUNTER → 2023-04-06 09:44 | Outpatient (CLI) | payer MEDICARE, SELFPAY ==
--- NOTE | 2023-04-06 09:49 | CT_ITS ---
FINAL REPORT TECHNIQUE: Axial images through the chest was performed with and without contrast by computed tomography. Sagittal and coronal reformatted images were obtained and reviewed. This study was performed with techniques to keep radiation doses as low as reasonably achievable (ALARA). Individualized dose reduction techniques using automated exposure control or adjustment of mA and/or kV according to the patient's size were employed. CLINICAL HISTORY: SOA COMPARISON: 03/09/2020 FINDINGS: CT CHEST W & W/O CONTRAST There is a 20 mm left thyroid lobe nodule. The patient is status post median sternotomy. There is no evidence of mediastinal mass or adenopathy. There is bibasilar scarring. There is no pleural or pericardial effusion. No suspicious pulmonary nodule is identified. The caudate lobe has an abnormal appearance most worrisome for a 4.3 cm mass, may represent metastases or primary hepatic neoplasm. Note is made of gallstones in the gallbladder. IMPRESSION: No acute cardiopulmonary process. Findings worrisome for a mass in the caudate lobe, may represent metastases or primary hepatic neoplasm. Cholelithiasis. Left thyroid lobe nodule. Reviewed, Interpreted and Dictated by Saul Bobo III, MD Transcribed by Shabnam Harrington Authenticated and [facility]
== END ==
PROVIDERS: PCP Family Medicine; Visit Provider Nurse Practitioner Family
DX: R06.02 Shortness of breath (principal)
CPT/HCPCS: 71270; Q9967

== ENCOUNTER → 2023-04-18 10:09 | Outpatient (CLI) | payer MEDICARE, SELFPAY ==
--- NOTE | 2023-04-18 10:15 | CT_ITS ---
FINAL REPORT TECHNIQUE: Pre-and postcontrast axial imaging of the abdomen and pelvis was obtained.This study was performed with techniques to keep radiation doses as low as reasonably achievable, (ALARA). Individualized dose reduction technique using automated exposure control or adjustment of mA and/or kV according to the patient's size were employed. CLINICAL HISTORY: LIVER PROTOCOL, LIVER MASS SEEN ON CHEST CT COMPARISON: 04/06/2023 FINDINGS: Chronic findings are seen at the lung bases. There is a heterogeneous mass in the caudate lobe of the liver, best seen on portal venous phase measuring at 5.6 cm in axial dimension and 5.4 cm in craniocaudal dimension. There is cholelithiasis. The gallbladder is present. The spleen, adrenal glands, and pancreas are unremarkable. On precontrast imaging, a nonobstructing left renal stone is seen. There is no hydronephrosis or solid renal mass. Abdominal GI tract is unremarkable. There is no lymphadenopathy or ascites. The pelvic organs and pelvic portions of the GI tract, including the appendix, are within normal limits. Prostate is enlarged. There is no lymphadenopathy or ascites. No acute osseous abnormalities identified. IMPRESSION: Heterogeneous lesion in the caudate lobe of the liver with differential diagnosis including primary hepatic neoplasm or metastatic disease. Given location, image guided biopsy is not possible. Cholelithiasis. Reviewed, Interpreted and Dictated by Tiffany Connolly MD Transcribed by Concetta Issa Authenticated and [facility]
== END ==
PROVIDERS: PCP Family Medicine; Visit Provider Nurse Practitioner Family
DX: R16.0 Hepatomegaly, not elsewhere classified (principal)
CPT/HCPCS: 74178; Q9967

== ENCOUNTER → 2023-06-27 11:05 | Outpatient (CLI) | payer MEDICARE, SELFPAY ==
--- NOTE | 2023-06-27 11:13 | XR_ITS ---
FINAL REPORT CLINICAL HISTORY: SOA FINDINGS: PA and lateral views of the chest are obtained. There has been median sternotomy. There is a left-sided AICD. There is no prior exam for comparison. The cardiac and mediastinal silhouettes are within normal limits. The lungs are clear. There is no pleural effusion, pneumothorax, or acute osseous abnormality. IMPRESSION: No radiographic evidence of acute cardiac or pulmonary disease. Reviewed, Interpreted and Dictated by Tiffany Connolly MD Transcribed by Jerome Villarreal Authenticated and [facility]
== END ==
PROVIDERS: PCP Family Medicine; Visit Provider Nurse Practitioner Family
DX: R06.02 Shortness of breath (principal)
CPT/HCPCS: 71046